=== PATIENT | male | born 1975 | race African-American/Black ===

== ENCOUNTER 2022-01-25 18:43 | Emergency (ER) | payer MEDICAID ==
[~2022-01-25] VITALS: Ht 198.1 cm; Wt 95.0 kg
[2022-01-25 18:47] VITALS: BP 119/74
[2022-01-25] MEDS ORDERED: MORPHINE SULFATE 4 MG/ML CPJ (NOT FOR IM USE) IV STA (19:09)
[2022-01-25] MEDS ORDERED: ONDANSETRON HCL 4MG/2ML INJ IV STA (19:09)
[2022-01-25] MEDS ORDERED: SODIUM CHLORIDE 0.9% 1,000 ML IV ONE (19:15)
[2022-01-25 19:40] LABS: CHLORIDE 107 mEq/L (98-107)
[2022-01-25 19:48] LABS: BASOPHILS % 0.6 % (0.0-2.0); EOSINOPHILS % 1.6 % (0.0-5.0); HEMATOCRIT. 38.7 % (42.0-52.0); HEMOGLOBIN. 13.1 g/dL (14.0-18.0); LYMPHOCYTES % 15.8 % (20.0-50.0); MEAN CORPUSCULAR VOLUME 85.5 fL (80.0-94.0); MEAN PLATELET VOLUME 6.7 fl (7.4-10.4); PLATELET 288 x1000/uL (130-400); RED BLOOD CELL COUNT 4.52 mill/uL (4.7-6.1)
[2022-01-25] MEDS ORDERED: IOHEXOL-300 100 ML BOTTLE ONE (20:28)
== END 2022-01-25 23:00 | disposition home or self-care (01) ==
LOC: ER 18:43
DX: R07.81 Pleurodynia (principal); M79.642 Pain in left hand; M79.641 Pain in right hand; M25.512 Pain in left shoulder; M25.511 Pain in right shoulder; M54.89 Other dorsalgia; M25.532 Pain in left wrist; M25.531 Pain in right wrist; R10.9 Unspecified abdominal pain; R74.8 Abnormal levels of other serum enzymes; R11.2 Nausea with vomiting, unspecified; Y04.2XXA Assault by strike against or bumped into by another person, initial encounter; Y93.89 Activity, other specified; Y92.89 Other specified places as the place of occurrence of the external cause
CPT/HCPCS: 36415; 71045; 71260; 73030; 73110; 73130; 74177; 80053; 83690; 84484; 85025; 93005; 96361; 96374; 96375; 99285; J2270; J2405; J7030; Q9967